=== PATIENT | female | born 1930 | race Caucasian/White ===

== ENCOUNTER 2019-05-13 12:25 | Inpatient (IN) | payer MEDICARE, SELFPAY ==
[~2019-05-13 12:25] MED LIST: Glycopyrrolate 0.2 MG/ML 5 ML SYRINGE ONE; ISOVUE-370 76%-LOCM 1 ML ONE; Lidocaine 1% PF 5 ML VIAL ONE; PHENYLEPHRINE-NS 100 MCG/ML 10 ML SYRINGE ONE; PROPOFOL 200 MG/20 ML VIAL ONE; Rocuronium Bromide 10 MG/ML (10ML VIAL) ONE; Succinylcholine Chloride 20 MG/ML 10 ml SYRINGE FS ONE; ePHEDrine 50 MG/ML VIAL ONE
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
[2019-05-13] MEDS ORDERED: Adacel (T-DAP) 0.5 ML SYRINGE ONE (12:47)
[2019-05-13] MEDS ORDERED: CEFAZOLIN 1 GM VIAL ONE ×2 (12:49)
[2019-05-13 12:51] LABS: Hemoglobin 12.3 g/dL (12.0-16.0); Mean Corpuscular HGB CONC 31.3 g/dL (32.0-36.0); Mean Corpuscular Hemoglobin 29.5 pg (27.0-31.0); Mean Corpuscular Volume 94.5 fL (78.0-98.0); Mean Platelet Volume 7.6 fL (7.4-10.4); Platelet Count 208 thou/uL (130-400); RBC Distribution Width 13.6 % (11.5-14.5); Red Blood Cell (RBC) Count 4.18 mill/uL (4.20-5.40)
[2019-05-13 12:58] LABS: INR-International Normal Ratio 1.2; PTT 29.4 SEC (22.9-36.1); Prothrombin Time 15.5 SEC (12.0-14.7)
[2019-05-13 13:02] LABS: Band 14 % (5-11); Eosinophils 3 % (0-10); Lymphocytes 12 % (21-51); MDiff Complete? YES; Monocytes 8 % (0-10); Neutrophil 61 % (42-75); Platelet Morphology Comment Appears Adequate; RBC Morphology Normal; Reactive Lymphocytes 2 % (0-10); White Blood Cell (WBC) Count 22.3 thou/uL (4.8-10.8)
[2019-05-13 13:06] LABS: ALT (SGPT) 72 U/L (8-55); AST (SGOT) 109 U/L (5-34); Alkaline Phosphatase 83 U/L (40-150); Anion Gap 12 mmol/L (10-20); BUN (Urea Nitrogen) 22 mg/dL (9.8-20.1); Bilirubin, Total 0.5 mg/dL (0.2-1.2); Calc. Creatinine Clearance 0 mL/min (70-130); Calcium 8.5 mg/dL (7.8-10.44); Carbon Dioxide 25 mmol/L (23-31); Chloride 107 mmol/L (98-107); Estimated GFR-MDRD 72; Glucose 135 mg/dL (83-110); Lipase 146 U/L (8-78); Potassium 4.4 mmol/L (3.5-5.1); Sodium 140 mmol/L (136-145)
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
[2019-05-13 13:38] LABS: Bilirubin Negative (Negative); Blood, Urine 3+ (Negative); Clarity Turbid (Clear); Glucose, Urine (Dipstick) Normal (Negative); Leukocyte Negative Leu/uL (Negative); Nitrite Negative (Negative); Protein, Urine (Dipstick) 100 mg/dL (Neg-Trace); RBC/HPF Greater than 50 HPF (0-3); Squamous Epithelial 0-3 HPF (0-3); Urobilinogen Normal mg/dL (Less than 2)
[2019-05-13 13:43] LABS: Bacteria/HPF None Seen HPF (None Seen)
[2019-05-13 13:44] LABS: Mucous/LPF 1+ LPF (<2+)
[2019-05-13] MEDS ORDERED: Promethazine HCl 25 MG/ML VIAL ONE (14:19)
[2019-05-13] MEDS ORDERED: Calcium Chloride 1 GM/10 ML Abboject SYRINGE ONE (14:36)
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
[2019-05-13] MEDS ORDERED: Heparin 1,000 UNITS/ML VIAL ONE (15:00)
[2019-05-13] MEDS ORDERED: Acetaminophen 1,000 MG in Premix Bag 1 BAG IVPB SCH (15:00)
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
[2019-05-13 15:07] LABS: Actual Bicarbonate (HCO3a) 18.3 mEq/L (22-28); Analyzer IN Cardio ER; Base Excess (BEa) -6.2 mEq/L (-2.0 to +3.0); CO2 Tension 33.4 mmHg (35.0-45.0); Carboxyhemoglobin (COHb) 0.2 gm% (0.0-3.0); Potassium - ABG Lab 4.05 mmol/L (3.70-5.30); pH, Arterial 7.36 (7.35-7.45)
[2019-05-13 15:09] LABS: O2 Tension (PaO2) 57.5 mmHg (> 60.0)
[2019-05-13] MEDS ORDERED: Promethazine HCl 25 MG/ML VIAL IM PRN (15:12)
[2019-05-13] MEDS ORDERED: Dextrose 5% in Water 1,000 ML IV PRN (15:12)
[2019-05-13] MEDS ORDERED: Morphine 4 MG/ML VIAL SLOW IVP PRN (15:12)
[2019-05-13] MEDS ORDERED: Dextrose 50% Abboject 50 ML SYRINGE SLOW IVP PRN (15:12)
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
[2019-05-13] MEDS ORDERED: Sodium Chloride 0.9% 1,000 ML IV SCH (15:15)
[2019-05-13 15:37] LABS: Troponin I 0.255 ng/mL (< 0.028)
[2019-05-13 15:41] LABS: Magnesium 1.3 mg/dL (1.6-2.6); Phosphorus 4.2 mg/dL (2.3-4.7)
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
[2019-05-13] MEDS: Lactated Ringer's 1,000 ML IV SCH ×2 (16:41→21:35)
[2019-05-13] MEDS ORDERED: Neomycin-Polymyxin 1 ML AMP ONE (17:25)
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
[2019-05-13] MEDS ORDERED: Norepinephrine 4 MG/4 ML VIAL ONE (18:08)
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
[2019-05-13] MEDS ORDERED: Magnesium 2 GM/50 ML 2 GM in Premix Bag 1 BAG IVPB SCH (18:45)
[2019-05-13 18:58] LABS: Hemoglobin 9.2 g/dL (12.0-16.0)
[2019-05-13] MEDS ORDERED: Fentanyl 100 MCG/2 ML VIAL ONE (20:20)
--- NOTE | 2019-05-13 20:32 | RAD ---
RIGHT WRIST TWO VIEWS: 05/13/19 Portable fluoroscopic spot images of the right wrist demonstrate placement of metal plate and screws stabilizing a distal radial fracture. IMPRESSION: Image documentation for ORIF with metal plate and screws stabilizing the distal radius with marked im provement in position and alignment. POS: [facility]
[2019-05-13] MEDS ORDERED: Famotidine/PF 20 mg/2ml Vial SLOW IVP SCH (21:00)
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
[2019-05-13] MEDS: Acetaminophen 1,000 MG in Premix Bag 1 BAG IVPB SCH (21:36)
[2019-05-13] MEDS ORDERED: CEFAZOLIN 2 GM in Sodium Chloride 0.9% 100 ML IVPB SCH (22:00)
[2019-05-13 22:30] LABS: Hemoglobin 11.5 g/dL (12.0-16.0)
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
[2019-05-13 22:51] LABS: Anion Gap 18 mmol/L (10-20); BUN (Urea Nitrogen) 22 mg/dL (9.8-20.1); CK (CPK) 3933 U/L (29-168); Calc. Creatinine Clearance 40 mL/min (70-130); Calcium 8.7 mg/dL (7.8-10.44); Carbon Dioxide 20 mmol/L (23-31); Chloride 108 mmol/L (98-107); Estimated GFR-MDRD 60; Glucose 190 mg/dL (83-110); Potassium 4.5 mmol/L (3.5-5.1); Sodium 141 mmol/L (136-145)
[2019-05-13 22:56] LABS: Troponin I 0.202 ng/mL (< 0.028)
[2019-05-13] MEDS ORDERED: Sodium Bicarbonate 150 MEQ in Dextrose 5% in Water 1,000 ML IV SCH (23:00)
[2019-05-13] MEDS: Ondansetron PF 4 MG/2 ML Vial IVP PRN (23:36)
[2019-05-14] MEDS: Insulin Regular 300 UNITS/3 ML VIAL SC PRN ×2 (00:47→06:45)
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
[2019-05-14] MEDS: Acetaminophen 1,000 MG in Premix Bag 1 BAG IVPB SCH ×3 (04:09→15:22)
[2019-05-14 04:48] LABS: #Lymphocytes 1.5 thou/uL (1.20-3.40); #Monocytes 1.3 thou/uL (0.11-0.59); #Neutrophils 10.4 thou/uL (1.40-6.50); %Basophils 0.2 % (0.0-1.0); %Eosinophils 0.2 % (0.0-10.0); %Monocytes 9.5 % (0.0-10.0); %Neutrophils 79.1 % (42.0-75.0); Hemoglobin 10.6 g/dL (12.0-16.0); Mean Corpuscular HGB CONC 34.7 g/dL (32.0-36.0); Mean Corpuscular Hemoglobin 31.9 pg (27.0-31.0); Mean Corpuscular Volume 91.8 fL (78.0-98.0); Mean Platelet Volume 8.3 fL (7.4-10.4); Platelet Count 175 thou/uL (130-400); RBC Distribution Width 13.6 % (11.5-14.5); Red Blood Cell (RBC) Count 3.32 mill/uL (4.20-5.40); White Blood Cell (WBC) Count 13.2 thou/uL (4.8-10.8)
[2019-05-14 05:07] LABS: ALT (SGPT) 49 U/L (8-55); AST (SGOT) 92 U/L (5-34); Alkaline Phosphatase 55 U/L (40-150); Anion Gap 17 mmol/L (10-20); BUN (Urea Nitrogen) 24 mg/dL (9.8-20.1); Bilirubin, Total 0.8 mg/dL (0.2-1.2); CK (CPK) 3759 U/L (29-168); Calc. Creatinine Clearance 36 mL/min (70-130); Calcium 8.9 mg/dL (7.8-10.44); Carbon Dioxide 23 mmol/L (23-31); Chloride 105 mmol/L (98-107); Estimated GFR-MDRD 54; Globulin 1.9 g/dL (2.4-3.5); Glucose 200 mg/dL (83-110); Potassium 4.1 mmol/L (3.5-5.1); Protein, Total 4.9 g/dL (6.0-8.3); Sodium 141 mmol/L (136-145)
[2019-05-14] MEDS: CEFAZOLIN 2 GM, Admixture Fee 1 EACH in Sodium Chloride 0.9% 100 ML IVPB SCH ×3 (05:57→21:14)
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
[2019-05-14] MEDS: Morphine 4 MG/ML VIAL SLOW IVP PRN ×2 (08:59→19:26)
[2019-05-14] MEDS: Lactated Ringer's 1,000 ML IV SCH ×2 (09:08→18:20)
[2019-05-14 09:56] LABS: Lactic Acid 5.5 mmol/L (0.5-2.2)
[2019-05-14] MEDS ORDERED: Amiodarone 150 MG, Admixture Fee 1 EACH in Dextrose 5% in Water 100 ML IVPB SCH (12:00)
[2019-05-14] MEDS: Amiodarone 450 MG, Admixture Fee 1 EACH in Dextrose 5% in Water 250 ML IVPB SCH ×2 (12:10→21:13)
[2019-05-14 12:30] LABS: Anion Gap 12 mmol/L (10-20); BUN (Urea Nitrogen) 28 mg/dL (9.8-20.1); Calc. Creatinine Clearance 36 mL/min (70-130); Calcium 8.5 mg/dL (7.8-10.44); Carbon Dioxide 28 mmol/L (23-31); Chloride 103 mmol/L (98-107); Estimated GFR-MDRD 52; Glucose 105 mg/dL (83-110); Magnesium 2.2 mg/dL (1.6-2.6); Phosphorus 3.8 mg/dL (2.3-4.7); Potassium 3.9 mmol/L (3.5-5.1); Sodium 139 mmol/L (136-145)
--- NOTE | 2019-05-14 13:35 | RAD ---
PORTABLE CHEST: Date: 05/14/19 HISTORY: Atrial fibrillation. COMPARISON: 05/13/19. FINDINGS: Heart mildly prominent, but stable. Aortic calcification again noted. No infiltrate or significant va scular congestion seen. IMPRESSION: Mild cardiomegaly is stable. No acute infiltrate or edema apparent. POS: [facility]
[2019-05-14] MEDS ORDERED: Potassium Chloride 20 MEQ in Premix Bag 1 BAG IVPB SCH (13:45)
[2019-05-14] MEDS ORDERED: Digoxin 0.5 MG/2 ML AMP SLOW IVP SCH (13:45)
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
[2019-05-14] MEDS ORDERED: Prevnar 13-Val Conj/PF 0.5 ML SYRINGE IM ONE (16:15)
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
[2019-05-14 19:02] LABS: Troponin I 0.092 ng/mL (< 0.028)
[2019-05-14] MEDS ORDERED: TAFLUPROST R EYE SCH (21:00)
[2019-05-14] MEDS: Famotidine/PF 20 mg/2ml Vial SLOW IVP SCH (21:00)
[2019-05-14] MEDS: Polyethylene Glycol 3350 17 GM Packet PO SCH (21:00)
[2019-05-14] MEDS ORDERED: Enoxaparin Sodium 40 MG/0.4 ML SYRINGE SC SCH ×2 (21:00)
[2019-05-14] MEDS: Senokot S 8.6-50 MG TAB PO SCH (21:00)
[2019-05-14] MEDS: Polyvinyl Alcohol 1.4%/Povidone 0.6% Opth Drops EA EYE PRN (21:01)
[2019-05-14] MEDS ORDERED: Enoxaparin Sodium 30 MG/0.3 ML SYRINGE SC SCH (21:15)
[2019-05-14] MEDS: Ondansetron PF 4 MG/2 ML Vial IVP PRN (21:29)
[2019-05-14] MEDS ORDERED: Furosemide 40 MG/4 ML VIAL SLOW IVP SCH (23:45)
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
[2019-05-15] MEDS: Ondansetron PF 4 MG/2 ML Vial IVP PRN (03:25)
[2019-05-15] MEDS: CEFAZOLIN 2 GM, Admixture Fee 1 EACH in Sodium Chloride 0.9% 100 ML IVPB SCH ×2 (05:20→13:27)
[2019-05-15] MEDS: Lactated Ringer's 1,000 ML IV SCH ×2 (05:20→16:22)
[2019-05-15 05:24] LABS: Anion Gap 12 mmol/L (10-20); BUN (Urea Nitrogen) 28 mg/dL (9.8-20.1); Calc. Creatinine Clearance 42 mL/min (70-130); Calcium 8.6 mg/dL (7.8-10.44); Carbon Dioxide 30 mmol/L (23-31); Chloride 97 mmol/L (98-107); Estimated GFR-MDRD 63; Glucose 141 mg/dL (83-110); Magnesium 1.8 mg/dL (1.6-2.6); Phosphorus 3.3 mg/dL (2.3-4.7); Potassium 3.9 mmol/L (3.5-5.1); Sodium 135 mmol/L (136-145)
[2019-05-15 05:32] LABS: Band 22 % (5-11); Hemoglobin 8.5 g/dL (12.0-16.0); Lymphocytes 13 % (21-51); MDiff Complete? YES; Mean Corpuscular HGB CONC 35.5 g/dL (32.0-36.0); Mean Corpuscular Volume 92.9 fL (78.0-98.0); Mean Platelet Volume 7.9 fL (7.4-10.4); Metamyelocyte 2 % (0-0); Monocytes 7 % (0-10); Neutrophil 56 % (42-75); Platelet Count 145 thou/uL (130-400); Platelet Morphology Comment Appears Adequate; RBC Distribution Width 13.4 % (11.5-14.5); RBC Morphology Normal; Red Blood Cell (RBC) Count 2.57 mill/uL (4.20-5.40); White Blood Cell (WBC) Count 12.2 thou/uL (4.8-10.8)
[2019-05-15] MEDS ORDERED: Cetirizine HCl 10 MG TAB PO SCH (09:00)
[2019-05-15] MEDS ORDERED: PROPOFOL 20 ML ONE (09:17)
[2019-05-15] MEDS ORDERED: Lidocaine 1% (PF) 30 ML VIAL ONE (09:18)
[2019-05-15] MEDS: Lisinopril/Hydrochlorothiazide 20 mg/12.5 mg Tablet PO SCH (10:02)
[2019-05-15] MEDS: Atorvastatin Calcium 20 MG TAB PO SCH (10:02)
[2019-05-15] MEDS: Loratadine 10 MG TAB PO SCH (10:03)
[2019-05-15] MEDS: Senokot S 8.6-50 MG TAB PO SCH ×2 (10:03→23:00)
[2019-05-15] MEDS: Morphine 4 MG/ML VIAL SLOW IVP PRN ×2 (10:27→16:17)
[2019-05-15] MEDS: Amiodarone 450 MG, Admixture Fee 1 EACH in Dextrose 5% in Water 250 ML IVPB SCH (11:41)
[2019-05-15] MEDS ORDERED: PHENYLEPHRINE-NS 100 MCG/ML 10 ML SYRINGE ONE (12:45)
[2019-05-15] MEDS ORDERED: Ondansetron PF 4 MG/2 ML Vial ONE (12:45)
[2019-05-15] MEDS ORDERED: PROPOFOL 200 MG/20 ML VIAL ONE (12:45)
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
--- NOTE | 2019-05-15 15:46 | OP ---
DATE OF PROCEDURE: 05/15/19 SURGEON: Narcisa Benavides M.D. PROCEDURE: Cardioversion INDICATION FOR PROCEDURE: This is an 88-year-old patient who developed atrial fibrillation/flutter yesterday afternoon. Given I V Amiodarone and needs to go to the operating room for further procedures. Unable to give this lady a dequate anticoagulation. It was felt in the best interest of the patient to proceed with early cardio version of her atrial flutter back to sinus rhythm. The patient was given short acting propofol by the anesthesiologist and using three attempts, one at 50 joules, 100 joules, and 150 joules, the patient did convert from the atrial flutter only momentari ly to sinus rhythm and then again each time converted back to atrial flutter. The rate is under good control and we will continue her medical management at this time. Would advise to proceed with her s urgical procedure as soon as possible and then we will attempt to again cardioversion after the proce dure.
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
[2019-05-15] MEDS ORDERED: Ketamine 50 MG/ML (10ML VIAL) ONE (18:08)
[2019-05-15] MEDS ORDERED: Propofol 1,000 MG/100 ML VIAL IV ONE (18:58)
[2019-05-15] MEDS ORDERED: Phenylephrine HCL 10 MG/ML VIAL ONE (19:58)
--- NOTE | 2019-05-15 21:34 | RAD ---
THREE FLUOROSCOPIC SPOT IMAGES OF THE LEFT DISTAL HUMERUS: 05/15/19 INDICATION: ORIF of left humerus. COMPARISON: Prior left foreign radiographs dated 05/13/19. FINDINGS: Since the comparison examination there has been interval open reduction and internal fixation of the distal humeral fracture. Fracture alignment is near anatomic. There has been placement of a low profi le screw and plate construct fixating the medial and lateral margin of the distal humerus. The instru mentation projects in the expected position without gross evidence of complication. Radiocapitellar alignment is normal appearing. The total fluoroscopic time was 9.4 seconds. Total exposure was 0.30 m Gy. IMPRESSION: Interval ORIF of left distal humerus fracture. POS: BH
[2019-05-15] MEDS: Famotidine/PF 20 mg/2ml Vial SLOW IVP SCH (22:59)
[2019-05-15] MEDS: Polyethylene Glycol 3350 17 GM Packet PO SCH (23:00)
[2019-05-16] MEDS: CEFAZOLIN 2 GM, Admixture Fee 1 EACH in Sodium Chloride 0.9% 100 ML IVPB SCH ×2 (00:38→05:38)
[2019-05-16] MEDS: Morphine 4 MG/ML VIAL SLOW IVP PRN ×2 (00:48→03:50)
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
[2019-05-16] MEDS: Lactated Ringer's 1,000 ML IV SCH (00:56)
[2019-05-16] MEDS: Amiodarone 450 MG, Admixture Fee 1 EACH in Dextrose 5% in Water 250 ML IVPB SCH ×2 (03:51→20:47)
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
[2019-05-16 04:31] LABS: #Lymphocytes 1.3 thou/uL (1.20-3.40); #Monocytes 0.8 thou/uL (0.11-0.59); #Neutrophils 5.8 thou/uL (1.40-6.50); %Basophils 0.3 % (0.0-1.0); %Eosinophils 0.5 % (0.0-10.0); %Lymphocytes 16.3 % (21.0-51.0); Hemoglobin 9.8 g/dL (12.0-16.0); Mean Corpuscular HGB CONC 34.4 g/dL (32.0-36.0); Mean Corpuscular Hemoglobin 31.7 pg (27.0-31.0); Mean Corpuscular Volume 92.2 fL (78.0-98.0); Platelet Count 111 thou/uL (130-400); RBC Distribution Width 13.8 % (11.5-14.5); Red Blood Cell (RBC) Count 3.09 mill/uL (4.20-5.40)
[2019-05-16 04:47] LABS: Anion Gap 11 mmol/L (10-20); BUN (Urea Nitrogen) 24 mg/dL (9.8-20.1); Calc. Creatinine Clearance 52 mL/min (70-130); Calcium 8.3 mg/dL (7.8-10.44); Carbon Dioxide 29 mmol/L (23-31); Chloride 101 mmol/L (98-107); Estimated GFR-MDRD 82; Glucose 115 mg/dL (83-110); Magnesium 1.9 mg/dL (1.6-2.6); Phosphorus 2.3 mg/dL (2.3-4.7); Sodium 137 mmol/L (136-145)
[2019-05-16] MEDS ORDERED: Furosemide 40 MG/4 ML VIAL SLOW IVP SCH (08:45)
[2019-05-16] MEDS: Lisinopril/Hydrochlorothiazide 20 mg/12.5 mg Tablet PO SCH (10:21)
[2019-05-16] MEDS: Atorvastatin Calcium 20 MG TAB PO SCH (10:23)
[2019-05-16] MEDS: Senokot S 8.6-50 MG TAB PO SCH ×2 (10:23→20:41)
[2019-05-16] MEDS: Loratadine 10 MG TAB PO SCH (10:27)
[2019-05-16] MEDS: Acetaminophen 500 MG TAB PO SCH ×3 (12:54→23:59)
[2019-05-16] MEDS: Insulin Regular 300 UNITS/3 ML VIAL SC PRN (17:47)
[2019-05-16] MEDS ORDERED: PHOS-NAK 1 PKT PACK PO SCH (18:15)
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
[2019-05-16] MEDS: Polyethylene Glycol 3350 17 GM Packet PO SCH (20:39)
[2019-05-16] MEDS: Enoxaparin Sodium 30 MG/0.3 ML SYRINGE SC SCH (20:41)
[2019-05-16] MEDS: Famotidine/PF 20 mg/2ml Vial SLOW IVP SCH (20:41)
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
[2019-05-17 04:48] LABS: Anion Gap 11 mmol/L (10-20); BUN (Urea Nitrogen) 26 mg/dL (9.8-20.1); Calc. Creatinine Clearance 47 mL/min (70-130); Calcium 8.2 mg/dL (7.8-10.44); Carbon Dioxide 31 mmol/L (23-31); Chloride 98 mmol/L (98-107); Estimated GFR-MDRD 73; Glucose 128 mg/dL (83-110); Magnesium 1.9 mg/dL (1.6-2.6); Phosphorus 2.1 mg/dL (2.3-4.7); Potassium 3.7 mmol/L (3.5-5.1); Sodium 136 mmol/L (136-145)
[2019-05-17] MEDS: Acetaminophen 500 MG TAB PO SCH (05:20)
[2019-05-17] MEDS ORDERED: Potassium Phosphate 15 MMOL in Sodium Chloride 0.9% 250 ML 250 ML IVPB SCH (08:00)
[2019-05-17] MEDS ORDERED: traMADol HCl 50 MG TAB PO PRN (08:18)
[2019-05-17] MEDS ORDERED: Ibuprofen 200 MG TAB PO PRN (08:19)
[2019-05-17] MEDS ORDERED: Furosemide 20 MG/2 ML VIAL SLOW IVP SCH (08:30)
[2019-05-17] MEDS: Senokot S 8.6-50 MG TAB PO SCH ×2 (09:00→20:53)
[2019-05-17] MEDS: Lisinopril/Hydrochlorothiazide 20 mg/12.5 mg Tablet PO SCH (09:00)
[2019-05-17] MEDS: Atorvastatin Calcium 20 MG TAB PO SCH (09:00)
[2019-05-17] MEDS ORDERED: Ibuprofen 200 MG TAB PO SCH (09:00)
[2019-05-17] MEDS: Amlodipine 5 MG TAB PO SCH ×2 (09:00→18:47)
[2019-05-17] MEDS: Loratadine 10 MG TAB PO SCH (09:00)
[2019-05-17] MEDS: traMADol HCl 50 MG TAB PO SCH ×3 (09:00→20:53)
--- NOTE | 2019-05-17 09:00 | EKG ---
Test Reason : Blood Pressure : / mmHG Vent. Rate : 110 BPM Atrial Rate : 110 BPM P-R Int : 000 ms QRS Dur : 066 ms QT Int : 298 ms P-R-T Axes : 000 021 064 degrees QTc Int : 403 ms Atrial fibrillation Possible Inferior infarct , age undetermined Abnormal ECG No previous ECGs available Confirmed by DR. Mark POTTS ([id number]) on 05/17/2019 9:00:03 AM Referred By: ISSA Confirmed By:DR. Mark POTTS
[2019-05-17] MEDS ORDERED: Fentanyl 100 MCG/2 ML VIAL ONE (09:04)
[2019-05-17] MEDS ORDERED: Fentanyl 100 MCG/2 ML VIAL SLOW IVP SCH (09:15)
[2019-05-17] MEDS ORDERED: Magnesium 2 GM/50 ML 2 GM in Premix Bag 1 BAG IVPB SCH (09:15)
[2019-05-17] MEDS ORDERED: Morphine 2 MG/ML SYRINGE SLOW IVP PRN (10:20)
[2019-05-17] MEDS: Ketorolac Tromethamine 30 MG/ML VIAL IVP SCH ×2 (10:35→18:10)
[2019-05-17] MEDS: Amiodarone 450 MG, Admixture Fee 1 EACH in Dextrose 5% in Water 250 ML IVPB SCH (12:25)
[2019-05-17] MEDS: Acetaminophen 1,000 MG in Premix Bag 1 BAG IVPB SCH ×2 (12:25→18:06)
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
[2019-05-17] MEDS ORDERED: PROPOFOL 20 ML ONE (16:11)
[2019-05-17] MEDS ORDERED: PROPOFOL 200 MG/20 ML VIAL ONE (17:03)
[2019-05-17] MEDS: Polyethylene Glycol 3350 17 GM Packet PO SCH (20:53)
[2019-05-17] MEDS: Enoxaparin Sodium 30 MG/0.3 ML SYRINGE SC SCH (20:53)
[2019-05-17] MEDS: Famotidine/PF 20 mg/2ml Vial SLOW IVP SCH (20:53)
[2019-05-17] MEDS: Polyvinyl Alcohol 1.4%/Povidone 0.6% Opth Drops EA EYE PRN (20:55)
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
[2019-05-18] MEDS: Acetaminophen 1,000 MG in Premix Bag 1 BAG IVPB SCH ×2 (01:01→05:36)
[2019-05-18] MEDS: Ketorolac Tromethamine 30 MG/ML VIAL IVP SCH ×3 (01:04→19:16)
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
[2019-05-18] MEDS: Amiodarone 450 MG, Admixture Fee 1 EACH in Dextrose 5% in Water 250 ML IVPB SCH ×2 (03:52→20:33)
[2019-05-18 05:14] LABS: Anion Gap 12 mmol/L (10-20); BUN (Urea Nitrogen) 30 mg/dL (9.8-20.1); Calc. Creatinine Clearance 53 mL/min (70-130); Calcium 8.4 mg/dL (7.8-10.44); Carbon Dioxide 30 mmol/L (23-31); Chloride 98 mmol/L (98-107); Estimated GFR-MDRD 71; Glucose 101 mg/dL (83-110); Magnesium 2.5 mg/dL (1.6-2.6); Phosphorus 3.6 mg/dL (2.3-4.7); Potassium 3.7 mmol/L (3.5-5.1); Sodium 136 mmol/L (136-145)
[2019-05-18] MEDS: hydrALAZINE 20 MG/ML VIAL SLOW IVP PRN (06:43)
[2019-05-18] MEDS ORDERED: Potassium Chloride 40 MEQ in Sodium Chloride 0.9% 250 ML 250 ML IVPB SCH (08:15)
[2019-05-18] MEDS: Senokot S 8.6-50 MG TAB PO SCH ×2 (08:31→20:44)
[2019-05-18] MEDS: Atorvastatin Calcium 20 MG TAB PO SCH (08:31)
[2019-05-18] MEDS: Amlodipine 5 MG TAB PO SCH (08:32)
[2019-05-18] MEDS: traMADol HCl 50 MG TAB PO SCH ×3 (08:32→20:44)
[2019-05-18] MEDS: Loratadine 10 MG TAB PO SCH (08:33)
[2019-05-18] MEDS: Lisinopril/Hydrochlorothiazide 20 mg/12.5 mg Tablet PO SCH (08:39)
[2019-05-18] MEDS: Ondansetron PF 4 MG/2 ML Vial IVP PRN ×2 (08:51→22:57)
--- NOTE | 2019-05-18 09:34 | RAD ---
XR Abdomen 1 View/KUB 1 view abdomen series CLINICAL INDICATION: Ileus FINDINGS: Added density at the inferior left chest may relate to pleural fluid. Limited evaluation for free air. There is gaseous distention of bowel throughout the abdomen and pelvis. Moderate retained fecal material is seen within the distal colon. Small rectal probe is partially daryn ged at the low midline pelvis. Metallic clips seen overlying the left hemipelvis. No acute osseous pathology. IMPRESSION: Diffuse gaseous distention of the bowel. This may be on the basis of adynamic ileus or me chanical obstruction. Recommend continued radiographic follow-up.
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
[2019-05-18] MEDS ORDERED: Acetaminophen 500 MG TAB PO SCH (12:00)
[2019-05-18] MEDS: Neostigmine 0.5 MG in Syringe 0 ML SC SCH ×2 (12:33→19:18)
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
[2019-05-18] MEDS ORDERED: CEFAZOLIN 2 GM in Premix Bag 1 BAG IVPB SCH (13:30)
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
[2019-05-18] MEDS ORDERED: Amiodarone 200 MG TAB PO SCH (15:00)
[2019-05-18] MEDS: Bacitracin Zinc Ointment 30 gm TUBE TOP SCH (20:42)
[2019-05-18] MEDS: Famotidine/PF 20 mg/2ml Vial SLOW IVP SCH (20:43)
[2019-05-18] MEDS: Bisacodyl 10 MG SUPP PR SCH (20:43)
[2019-05-18] MEDS: Enoxaparin Sodium 30 MG/0.3 ML SYRINGE SC SCH (20:43)
[2019-05-18] MEDS: Lisinopril 20 MG TAB PO SCH (20:43)
[2019-05-18] MEDS: Polyethylene Glycol 3350 17 GM Packet PO SCH (20:44)
[2019-05-19] MEDS: Neostigmine 0.5 MG in Syringe 0 ML SC SCH ×2 (00:02→05:57)
[2019-05-19] MEDS: Polyvinyl Alcohol 1.4%/Povidone 0.6% Opth Drops EA EYE PRN ×2 (00:04→10:54)
[2019-05-19] MEDS: Sodium Chloride 0.9% 1,000 ML IV SCH ×2 (00:06→13:43)
[2019-05-19] MEDS: Ketorolac Tromethamine 30 MG/ML VIAL IVP SCH ×3 (01:11→17:30)
[2019-05-19 04:54] LABS: Anion Gap 9 mmol/L (10-20); BUN (Urea Nitrogen) 30 mg/dL (9.8-20.1); Calc. Creatinine Clearance 60 mL/min (70-130); Calcium 8.2 mg/dL (7.8-10.44); Carbon Dioxide 31 mmol/L (23-31); Chloride 97 mmol/L (98-107); Estimated GFR-MDRD 82; Glucose 111 mg/dL (83-110); Magnesium 2.1 mg/dL (1.6-2.6); Phosphorus 2.4 mg/dL (2.3-4.7); Potassium 4.4 mmol/L (3.5-5.1); Sodium 133 mmol/L (136-145)
[2019-05-19 05:25] LABS: Band 1 % (5-11); Hemoglobin 9.1 g/dL (12.0-16.0); Hypochromia SLIGHT = 6-15 cells (100X) (0-5/hpf); Lymphocytes 15 % (21-51); MDiff Complete? YES; Mean Corpuscular HGB CONC 34.5 g/dL (32.0-36.0); Mean Corpuscular Hemoglobin 32.6 pg (27.0-31.0); Mean Corpuscular Volume 94.6 fL (78.0-98.0); Mean Platelet Volume 7.3 fL (7.4-10.4); Monocytes 5 % (0-10); Neutrophil 79 % (42-75); Platelet Count 244 thou/uL (130-400); Platelet Morphology Comment Appears Adequate; RBC Distribution Width 14.3 % (11.5-14.5); Red Blood Cell (RBC) Count 2.78 mill/uL (4.20-5.40); White Blood Cell (WBC) Count 14.5 thou/uL (4.8-10.8)
[2019-05-19] MEDS: hydrALAZINE 20 MG/ML VIAL SLOW IVP PRN ×2 (06:42→17:13)
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
[2019-05-19] MEDS ORDERED: Furosemide 20 MG/2 ML VIAL SLOW IVP SCH (07:15)
--- NOTE | 2019-05-19 08:50 | RAD ---
CHEST 1 VIEW: Date: 05/19/19 HISTORY: Preoperative evaluation. COMPARISON: 05/14/19. FINDINGS: Right PICC line in place. Borderline cardiomegaly. Developing minimal pleural and parenchymal changes in the left lower lobe and infrahilar parenchymal changes in the right base since the prior study, r aising concern for developing bibasilar pneumonitis and/or subsegmental atelectasis with a small left pleural effusion. Mild vascular congestion. IMPRESSION: Developing pleural and parenchymal opacity changes in the left lower lobe, as well as some right infr ahilar parenchymal changes, possibly representing bibasilar pneumonitis and/or atelectasis. Minimal c ardiomegaly. Mild bilateral vascular congestion. CODE T.
[2019-05-19] MEDS: Atorvastatin Calcium 20 MG TAB PO SCH (09:02)
[2019-05-19] MEDS: Bacitracin Zinc Ointment 30 gm TUBE TOP SCH ×2 (09:02→21:35)
[2019-05-19] MEDS: Amlodipine 5 MG TAB PO SCH ×2 (09:02→21:34)
[2019-05-19] MEDS: Lisinopril 20 MG TAB PO SCH ×2 (09:02→21:32)
[2019-05-19] MEDS: Hydrochlorothiazide 25 MG TAB PO SCH (09:03)
[2019-05-19] MEDS: Bisacodyl 10 MG SUPP PR SCH ×2 (09:03→21:35)
[2019-05-19] MEDS: Senokot S 8.6-50 MG TAB PO SCH ×2 (09:04→21:37)
[2019-05-19] MEDS: Loratadine 10 MG TAB PO SCH (09:04)
[2019-05-19] MEDS: traMADol HCl 50 MG TAB PO SCH ×3 (09:09→21:33)
[2019-05-19] MEDS: Amiodarone 450 MG, Admixture Fee 1 EACH in Dextrose 5% in Water 250 ML IVPB SCH (11:16)
[2019-05-19] MEDS ORDERED: Fentanyl 100 MCG/2 ML VIAL ONE (11:59)
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
--- NOTE | 2019-05-19 13:16 | EKG ---
Test Reason : Blood Pressure : / mmHG Vent. Rate : 087 BPM Atrial Rate : 087 BPM P-R Int : 218 ms QRS Dur : 090 ms QT Int : 452 ms P-R-T Axes : 063 082 -17 degrees QTc Int : 543 ms Sinus rhythm with 1st degree A-V block with Premature atrial complexes Low voltage QRS Cannot rule out Anterior infarct , age undetermined Abnormal ECG When compared with ECG of 15-MAY-2019 12:11, (Unconfirmed) Sinus rhythm has replaced Atrial flutter QT has lengthened Confirmed by RENEE HINDS (2) on 05/19/2019 1:15:25 PM Referred By: TAN Confirmed By:RENEE HINDS
[2019-05-19] MEDS: Morphine 4 MG/ML VIAL SLOW IVP PRN ×2 (15:34→22:16)
[2019-05-19] MEDS ORDERED: Promethazine HCl 25 MG/ML VIAL IM PRN (15:39)
[2019-05-19] MEDS ORDERED: Ondansetron HCl/PF 4 MG/2 ML Vial IVP PRN (15:39)
[2019-05-19] MEDS ORDERED: Promethazine HCl 25 MG/ML VIAL SLOW IVP PRN (15:39)
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
--- NOTE | 2019-05-19 16:41 | RAD ---
PORTABLE AP ABDOMINAL RADIOGRAPH: 05/19/19 HISTORY: Evaluate Dobhoff feeding tube placement. COMPARISON: 05/18/19. FINDINGS: There is partial visualization of the tip of a central venous catheter is seen overlying the distal SVC. Curvilinear density at the right lung base is probably related to bleb within the minor fissure and there is persistent elevation of the right hemidiaphragm. Dobhoff feeding tube is now noted in pl aced which is coiled overlying the left upper quadrant with tip overlying the expected body/fundus of the stomach. There is mild gaseous distention of loops of small bowel. No other interval change fro m supine view of the abdomen on 05/18/19. IMPRESSION: Dobhoff feeding tube noted in place coiled overlying the left upper quadrant with tip overlying the f undus/body of the stomach. POS: [place]
[2019-05-19] MEDS ORDERED: Rocuronium Bromide 10 MG/ML (10ML VIAL) ONE (17:07)
[2019-05-19] MEDS ORDERED: Ondansetron PF 4 MG/2 ML Vial ONE (17:07)
[2019-05-19] MEDS ORDERED: Lidocaine 1% PF 5 ML VIAL ONE (17:07)
[2019-05-19] MEDS ORDERED: PROPOFOL 200 MG/20 ML VIAL ONE (17:07)
[2019-05-19] MEDS ORDERED: ePHEDrine 50 MG/ML VIAL ONE (17:07)
[2019-05-19] MEDS: Ondansetron PF 4 MG/2 ML Vial IVP PRN (17:13)
--- NOTE | 2019-05-19 17:36 | RAD ---
KUB: 05/19/19 COMPARISON: 05/19/19 at 3:36 p.m. HISTORY: Dobhoff placement. FINDINGS: A single view of the abdomen again shows the Dobhoff tube curled in the stomach. There is a nonspecif ic, nonobstructive bowel gas pattern. IMPRESSION: Dobhoff tube located in the stomach. POS: CET
--- NOTE | 2019-05-19 17:37 | RAD ---
SINGLE VIEW ABDOMEN: HISTORY: Dobhoff tube placement. COMPARISON: Exam done on 05/19/2019 at 3:40 p.m. FINDINGS: A single view of the abdomen shows a Dobhoff tube curled in the left upper quadrant of the abdomen, l ikely within the stomach. There is a nonobstructed bowel gas pattern. IMPRESSION: Dobhoff tube remains in the stomach. POS: CET
--- NOTE | 2019-05-19 17:37 | RAD ---
KUB: 05/19/19 COMPARISON: 05/19/19 at 3:30 p.m. HISTORY: Dobhoff tube placement. FINDINGS: Single view of the abdomen shows a Dobhoff tube curled within the stomach. There is a nonobstructive bowel gas pattern. IMPRESSION: Dobhoff tube remains in the stomach. POS: CET
--- NOTE | 2019-05-19 18:01 | RAD ---
INTRAOPERATIVE IMAGING OF THE RIGHT TIBIA AND FIBULA: 05/19/2019 HISTORY: ORIF right ankle. FINDINGS: Multifocal fracture deformity of the fibular shaft noted with mild lateral displacement of the segmen hina fracture fragment. Comminuted distal tibial shaft fractures with a medial tibial screw and plate fixation. There is anatomic alignment at the tibial fracture site. IMPRESSION: Open reduction and internal fixation, as above. POS: [place]
[2019-05-19] MEDS: Famotidine/PF 20 mg/2ml Vial SLOW IVP SCH (21:34)
[2019-05-19] MEDS: Polyethylene Glycol 3350 17 GM Packet PO SCH (21:36)
[2019-05-19] MEDS: Enoxaparin Sodium 40 MG/0.4 ML SYRINGE SC SCH (22:08)
[2019-05-19] MEDS: CEFAZOLIN 2 GM, Admixture Fee 1 EACH in Sodium Chloride 0.9% 100 ML IVPB SCH (22:10)
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
[2019-05-20] MEDS: Ketorolac Tromethamine 30 MG/ML VIAL IVP SCH (01:20)
[2019-05-20] MEDS: Amiodarone 450 MG, Admixture Fee 1 EACH in Dextrose 5% in Water 250 ML IVPB SCH ×2 (01:22→19:18)
[2019-05-20] MEDS: CEFAZOLIN 2 GM, Admixture Fee 1 EACH in Sodium Chloride 0.9% 100 ML IVPB SCH ×3 (05:14→21:38)
[2019-05-20] MEDS: Ondansetron PF 4 MG/2 ML Vial IVP PRN (06:10)
[2019-05-20 06:28] LABS: #Basophils 0.1 thou/uL (0.0-0.2); #Eosinphils 0.3 thou/uL (0.0-0.7); #Lymphocytes 1.8 thou/uL (1.20-3.40); #Monocytes 1.9 thou/uL (0.11-0.59); #Neutrophils 10.1 thou/uL (1.40-6.50); %Basophils 0.4 % (0.0-1.0); %Eosinophils 2.3 % (0.0-10.0); %Lymphocytes 12.9 % (21.0-51.0); %Monocytes 13.2 % (0.0-10.0); %Neutrophils 71.2 % (42.0-75.0); Mean Corpuscular HGB CONC 33.2 g/dL (32.0-36.0); Mean Corpuscular Volume 93.4 fL (78.0-98.0); Mean Platelet Volume 7.7 fL (7.4-10.4); Platelet Count 156 thou/uL (130-400); Red Blood Cell (RBC) Count 2.89 mill/uL (4.20-5.40); White Blood Cell (WBC) Count 14.1 thou/uL (4.8-10.8)
[2019-05-20 07:39] LABS: Anion Gap 8 mmol/L (10-20); BUN (Urea Nitrogen) 35 mg/dL (9.8-20.1); Calc. Creatinine Clearance 50 mL/min (70-130); Calcium 8.3 mg/dL (7.8-10.44); Carbon Dioxide 32 mmol/L (23-31); Chloride 99 mmol/L (98-107); Estimated GFR-MDRD 67; Glucose 156 mg/dL (83-110); Phosphorus 2.4 mg/dL (2.3-4.7); Potassium 3.9 mmol/L (3.5-5.1); Sodium 135 mmol/L (136-145)
[2019-05-20] MEDS: Amlodipine 5 MG TAB PO SCH ×2 (08:13→21:33)
[2019-05-20] MEDS: Atorvastatin Calcium 20 MG TAB PO SCH (08:15)
[2019-05-20] MEDS: Lisinopril 20 MG TAB PO SCH ×2 (08:15→21:35)
[2019-05-20] MEDS: Hydrochlorothiazide 25 MG TAB PO SCH (08:15)
[2019-05-20] MEDS: Loratadine 10 MG TAB PO SCH (08:15)
[2019-05-20] MEDS: Senokot S 8.6-50 MG TAB PO SCH ×2 (08:16→21:38)
[2019-05-20] MEDS: Bisacodyl 10 MG SUPP PR SCH (08:17)
[2019-05-20] MEDS: Bacitracin Zinc Ointment 30 gm TUBE TOP SCH ×2 (08:17→21:37)
[2019-05-20] MEDS ORDERED: Ibuprofen 800 MG TAB PO PRN (08:21)
[2019-05-20] MEDS ORDERED: Ibuprofen 600 MG TAB PO PRN (08:36)
[2019-05-20] MEDS: Acetaminophen 500 MG TAB PO SCH ×3 (08:44→21:36)
[2019-05-20] MEDS: Ascorbic Acid 500 mg Chewable Tablet PO SCH ×2 (08:44→21:35)
[2019-05-20] MEDS: traMADol HCl 50 MG TAB PO SCH ×3 (08:44→21:31)
[2019-05-20] MEDS: hydrALAZINE 20 MG/ML VIAL SLOW IVP PRN ×2 (09:28→16:51)
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
[2019-05-20] MEDS: Metoclopramide HCl 10 MG/2 ML VIAL IVP SCH ×2 (13:35→21:36)
[2019-05-20] MEDS: Ferrous Sulfate 325 MG TAB PO SCH (16:32)
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
[2019-05-20] MEDS: Famotidine/PF 20 mg/2ml Vial SLOW IVP SCH (21:36)
[2019-05-20] MEDS: Enoxaparin Sodium 40 MG/0.4 ML SYRINGE SC SCH (21:37)
[2019-05-20] MEDS: Polyethylene Glycol 3350 17 GM Packet PO SCH (21:37)
[2019-05-20] MEDS ORDERED: Chloraseptic Spray 180 ml Bottle PO PRN (22:00)
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
[2019-05-21] MEDS: Acetaminophen 500 MG TAB PO SCH ×4 (02:30→20:08)
[2019-05-21] MEDS: traMADol HCl 50 MG TAB PO SCH ×4 (03:00→20:08)
[2019-05-21] MEDS: Metoclopramide HCl 10 MG/2 ML VIAL IVP SCH ×3 (06:46→20:07)
[2019-05-21] MEDS: hydrALAZINE 20 MG/ML VIAL SLOW IVP PRN ×2 (06:55→17:04)
[2019-05-21] MEDS: Ferrous Sulfate 325 MG TAB PO SCH ×2 (08:01→16:36)
[2019-05-21] MEDS: Amlodipine 5 MG TAB PO SCH ×2 (08:25→20:08)
[2019-05-21] MEDS: Ascorbic Acid 500 mg Chewable Tablet PO SCH ×2 (08:25→20:08)
[2019-05-21] MEDS: Lisinopril 20 MG TAB PO SCH (08:26)
[2019-05-21] MEDS: Atorvastatin Calcium 20 MG TAB PO SCH (08:26)
[2019-05-21] MEDS: Hydrochlorothiazide 25 MG TAB PO SCH (08:26)
[2019-05-21] MEDS: Loratadine 10 MG TAB PO SCH (08:26)
[2019-05-21] MEDS: Bacitracin Zinc Ointment 30 gm TUBE TOP SCH ×2 (08:27→20:07)
[2019-05-21] MEDS: Senokot S 8.6-50 MG TAB PO SCH ×2 (08:27→20:09)
[2019-05-21 08:47] LABS: Hemoglobin 9.1 g/dL (12.0-16.0); Mean Corpuscular HGB CONC 32.7 g/dL (32.0-36.0); Mean Corpuscular Hemoglobin 31.1 pg (27.0-31.0); Mean Corpuscular Volume 95.2 fL (78.0-98.0); Mean Platelet Volume 8.1 fL (7.4-10.4); Platelet Count 247 thou/uL (130-400); RBC Distribution Width 15.1 % (11.5-14.5); Red Blood Cell (RBC) Count 2.93 mill/uL (4.20-5.40); White Blood Cell (WBC) Count 14.1 thou/uL (4.8-10.8)
[2019-05-21 09:05] LABS: Anion Gap 12 mmol/L (10-20); BUN (Urea Nitrogen) 37 mg/dL (9.8-20.1); Calc. Creatinine Clearance 55 mL/min (70-130); Calcium 8.4 mg/dL (7.8-10.44); Carbon Dioxide 27 mmol/L (23-31); Chloride 99 mmol/L (98-107); Estimated GFR-MDRD 74; Glucose 139 mg/dL (83-110); Phosphorus 2.7 mg/dL (2.3-4.7); Sodium 134 mmol/L (136-145)
[2019-05-21 09:09] LABS: #Eosinphils 0.2 thou/uL (0.0-0.7); #Lymphocytes 1.7 thou/uL (1.20-3.40); #Monocytes 1.5 thou/uL (0.11-0.59); #Neutrophils 10.7 thou/uL (1.40-6.50); %Eosinophils 1.5 % (0.0-10.0); %Monocytes 10.3 % (0.0-10.0); %Neutrophils 76.1 % (42.0-75.0); Band 17 % (5-11); Eosinophils 3 % (0-10); Helmet Cells SLIGHT = 2-5 cells (100X) (0-1/hpf); Lymphocytes 10 % (21-51); MDiff Complete? YES; Monocytes 10 % (0-10); Neutrophil 60 % (42-75); Ovalocytes SLIGHT = 2-5 cells (100X) (0-1/hpf); Platelet Morphology Comment Appears Adequate; Polychromasia SLIGHT = 2-3 cells (100X) (0-2/hpf)
[2019-05-21] MEDS: Morphine 4 MG/ML VIAL SLOW IVP PRN (10:02)
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
[2019-05-21] MEDS: Amiodarone 450 MG, Admixture Fee 1 EACH in Dextrose 5% in Water 250 ML IVPB SCH (13:09)
[2019-05-21] MEDS: Polyvinyl Alcohol 1.4%/Povidone 0.6% Opth Drops EA EYE PRN (14:07)
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
[2019-05-21] MEDS: Enoxaparin Sodium 40 MG/0.4 ML SYRINGE SC SCH (20:07)
[2019-05-21] MEDS: Famotidine/PF 20 mg/2ml Vial SLOW IVP SCH (20:08)
[2019-05-21] MEDS: Polyethylene Glycol 3350 17 GM Packet PO SCH (20:09)
[2019-05-22] MEDS: traMADol HCl 50 MG TAB PO SCH ×4 (03:16→20:24)
[2019-05-22] MEDS: Acetaminophen 500 MG TAB PO SCH ×4 (03:17→20:24)
[2019-05-22] MEDS: Amiodarone 450 MG, Admixture Fee 1 EACH in Dextrose 5% in Water 250 ML IVPB SCH (03:56)
[2019-05-22] MEDS: Metoclopramide HCl 10 MG/2 ML VIAL IVP SCH ×2 (05:29→15:24)
[2019-05-22 06:00] LABS: #Eosinphils 0.2 thou/uL (0.0-0.7); #Lymphocytes 1.1 thou/uL (1.20-3.40); #Monocytes 1.3 thou/uL (0.11-0.59); #Neutrophils 12.3 thou/uL (1.40-6.50); %Basophils 0.1 % (0.0-1.0); %Eosinophils 1.2 % (0.0-10.0); %Lymphocytes 7.7 % (21.0-51.0); %Monocytes 8.9 % (0.0-10.0); %Neutrophils 82.2 % (42.0-75.0); Hemoglobin 8.8 g/dL (12.0-16.0); Mean Corpuscular HGB CONC 33.8 g/dL (32.0-36.0); Mean Corpuscular Hemoglobin 32.3 pg (27.0-31.0); Mean Corpuscular Volume 95.4 fL (78.0-98.0); Mean Platelet Volume 7.1 fL (7.4-10.4); Platelet Count 334 thou/uL (130-400); RBC Distribution Width 14.9 % (11.5-14.5); Red Blood Cell (RBC) Count 2.71 mill/uL (4.20-5.40); White Blood Cell (WBC) Count 14.9 thou/uL (4.8-10.8)
[2019-05-22 06:39] LABS: Anion Gap 11 mmol/L (10-20); BUN (Urea Nitrogen) 42 mg/dL (9.8-20.1); Calc. Creatinine Clearance 57 mL/min (70-130); Calcium 8.3 mg/dL (7.8-10.44); Carbon Dioxide 28 mmol/L (23-31); Chloride 101 mmol/L (98-107); Estimated GFR-MDRD 77; Glucose 149 mg/dL (83-110); Phosphorus 2.7 mg/dL (2.3-4.7); Potassium 4.1 mmol/L (3.5-5.1); Sodium 136 mmol/L (136-145)
[2019-05-22] MEDS: Atorvastatin Calcium 20 MG TAB PO SCH (09:12)
[2019-05-22] MEDS: Amlodipine 5 MG TAB PO SCH ×2 (09:13→20:25)
[2019-05-22] MEDS: Ascorbic Acid 500 mg Chewable Tablet PO SCH ×2 (09:13→20:25)
[2019-05-22] MEDS: Hydrochlorothiazide 25 MG TAB PO SCH (09:13)
[2019-05-22] MEDS: Ferrous Sulfate 325 MG TAB PO SCH ×2 (09:13→16:56)
[2019-05-22] MEDS: Bacitracin Zinc Ointment 30 gm TUBE TOP SCH ×2 (09:21→20:27)
[2019-05-22] MEDS: Losartan 25 MG TAB PO SCH (09:23)
[2019-05-22] MEDS: Senokot S 8.6-50 MG TAB PO SCH ×2 (09:23→20:26)
[2019-05-22] MEDS: Loratadine 10 MG TAB PO SCH (09:23)
[2019-05-22] MEDS: Polyvinyl Alcohol 1.4%/Povidone 0.6% Opth Drops EA EYE PRN ×2 (09:46→18:00)
[2019-05-22 10:02] LABS: Bacteria/HPF None Seen HPF (None Seen); Bilirubin Negative (Negative); Blood, Urine 1+ (Negative); Clarity Clear (Clear); Glucose, Urine (Dipstick) Normal (Negative); Leukocyte 500 Leu/uL (Negative); Nitrite 1+ (Negative); Protein, Urine (Dipstick) 30 mg/dL (Neg-Trace); Squamous Epithelial None Seen HPF (0-3); Urobilinogen Normal mg/dL (Less than 2); WBC/HPF Greater than 50 HPF (0-3)
[2019-05-22 10:03] LABS: Urine Culture Reflex Yes Yes
[2019-05-22] MEDS ORDERED: Sulfameth/Trimethoprim DS 800-160mg TAB PO SCH (10:45)
[2019-05-22] MEDS: Ondansetron PF 4 MG/2 ML Vial IVP PRN (12:08)
[2019-05-22] MEDS: hydrALAZINE 20 MG/ML VIAL SLOW IVP PRN ×2 (13:24→17:33)
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
--- NOTE | 2019-05-22 16:32 | ULT ---
Exam: Right upper extremity venous ultrasound with Doppler HISTORY: Patient has a forearm cast. Edema COMPARISON: none Technique: Grayscale, color flow, Doppler imaging and spectral waveform of the right upper extremity venous system FINDINGS: Limited evaluation due to mobility and forearm contrast Internal jugular vein is patent. Subclavian vein and axillary vein are patent. Suboptimal evaluation of the remainder the right upper extremity venous system, including the cephali c vein, basilic vein and brachial vein.. IMPRESSION: Suboptimal evaluation the right upper extremity venous system. There does appear to be so ft tissue edema.
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
[2019-05-22] MEDS: Metoclopramide 10 MG/10 ML UDCUP PO SCH ×2 (17:09→20:28)
[2019-05-22] MEDS ORDERED: Activase 2 MG VIAL CATH SCH (17:15)
[2019-05-22] MEDS ORDERED: Furosemide 40 MG/4 ML VIAL SLOW IVP SCH (17:30)
[2019-05-22] MEDS: Amiodarone 200 MG TAB PO SCH (20:24)
[2019-05-22] MEDS: Sulfameth/Trimethoprim DS 800-160mg TAB PO SCH (20:25)
[2019-05-22] MEDS: Famotidine 20 MG TAB PO SCH (20:25)
[2019-05-22] MEDS: Enoxaparin Sodium 40 MG/0.4 ML SYRINGE SC SCH (20:26)
[2019-05-22] MEDS: Polyethylene Glycol 3350 17 GM Packet PO SCH (20:26)
[2019-05-22] MEDS ORDERED: Amlodipine 5 MG TAB PO SCH (21:00)
[2019-05-22] MEDS ORDERED: LIFITEGRAST EA EYE SCH (21:00)
[2019-05-22] MEDS: Lifitegrast [Xiidra] 1 DROP EA EYE SCH (22:59)
[2019-05-23] MEDS: Acetaminophen 500 MG TAB PO SCH ×4 (03:52→20:12)
[2019-05-23] MEDS: traMADol HCl 50 MG TAB PO SCH ×4 (03:53→20:13)
[2019-05-23 05:21] LABS: #Eosinphils 0.1 thou/uL (0.0-0.7); #Lymphocytes 1.4 thou/uL (1.20-3.40); #Monocytes 1.2 thou/uL (0.11-0.59); #Neutrophils 13.3 thou/uL (1.40-6.50); %Basophils 0.2 % (0.0-1.0); %Eosinophils 0.9 % (0.0-10.0); %Lymphocytes 8.6 % (21.0-51.0); %Monocytes 7.6 % (0.0-10.0); %Neutrophils 82.8 % (42.0-75.0); Hemoglobin 8.8 g/dL (12.0-16.0); Mean Corpuscular HGB CONC 33.5 g/dL (32.0-36.0); Mean Corpuscular Hemoglobin 32.6 pg (27.0-31.0); Mean Corpuscular Volume 97.4 fL (78.0-98.0); Mean Platelet Volume 6.8 fL (7.4-10.4); Platelet Count 344 thou/uL (130-400); RBC Distribution Width 15.7 % (11.5-14.5); Red Blood Cell (RBC) Count 2.69 mill/uL (4.20-5.40); White Blood Cell (WBC) Count 16.1 thou/uL (4.8-10.8)
[2019-05-23 05:50] LABS: Anion Gap 12 mmol/L (10-20); BUN (Urea Nitrogen) 34 mg/dL (9.8-20.1); Calc. Creatinine Clearance 61 mL/min (70-130); Calcium 8.4 mg/dL (7.8-10.44); Carbon Dioxide 28 mmol/L (23-31); Chloride 100 mmol/L (98-107); Estimated GFR-MDRD 83; Glucose 99 mg/dL (83-110); Magnesium 2.2 mg/dL (1.6-2.6); Phosphorus 3.7 mg/dL (2.3-4.7); Potassium 4.1 mmol/L (3.5-5.1); Sodium 136 mmol/L (136-145)
[2019-05-23] MEDS ORDERED: Furosemide 40 MG/4 ML VIAL SLOW IVP SCH (09:30)
[2019-05-23] MEDS: Famotidine 20 MG TAB PO SCH ×2 (09:41→20:13)
[2019-05-23] MEDS: Amlodipine 5 MG TAB PO SCH ×2 (09:41→20:12)
[2019-05-23] MEDS: Ascorbic Acid 500 mg Chewable Tablet PO SCH ×2 (09:41→20:13)
[2019-05-23] MEDS: Amiodarone 200 MG TAB PO SCH ×2 (09:42→20:13)
[2019-05-23] MEDS: Losartan 25 MG TAB PO SCH (09:42)
[2019-05-23] MEDS: Hydrochlorothiazide 25 MG TAB PO SCH (09:42)
[2019-05-23] MEDS: Senokot S 8.6-50 MG TAB PO SCH (09:42)
[2019-05-23] MEDS: Metoclopramide 10 MG/10 ML UDCUP PO SCH ×2 (09:42→15:15)
[2019-05-23] MEDS: Ferrous Sulfate 325 MG TAB PO SCH ×2 (09:42→17:28)
[2019-05-23] MEDS: Loratadine 10 MG TAB PO SCH (09:43)
[2019-05-23] MEDS: Bacitracin Zinc Ointment 30 gm TUBE TOP SCH ×2 (09:48→20:28)
[2019-05-23] MEDS: Atorvastatin Calcium 20 MG TAB PO SCH ×2 (10:24→20:13)
[2019-05-23] MEDS: Lifitegrast [Xiidra] 1 DROP EA EYE SCH ×2 (10:24→20:16)
[2019-05-23] MEDS: Sulfameth/Trimethoprim DS 800-160mg TAB PO SCH (15:15)
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
[2019-05-23] MEDS: Enoxaparin Sodium 40 MG/0.4 ML SYRINGE SC SCH (20:14)
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
[2019-05-24] MEDS: Acetaminophen 500 MG TAB PO SCH ×4 (03:01→20:10)
[2019-05-24] MEDS: traMADol HCl 50 MG TAB PO SCH ×4 (03:02→20:11)
[2019-05-24 06:14] LABS: #Eosinphils 0.2 thou/uL (0.0-0.7); #Lymphocytes 1.3 thou/uL (1.20-3.40); #Monocytes 1.6 thou/uL (0.11-0.59); #Neutrophils 12.8 thou/uL (1.40-6.50); %Basophils 0.2 % (0.0-1.0); %Eosinophils 1.1 % (0.0-10.0); %Lymphocytes 8.2 % (21.0-51.0); %Monocytes 9.9 % (0.0-10.0); %Neutrophils 80.6 % (42.0-75.0); Hemoglobin 8.9 g/dL (12.0-16.0); Mean Corpuscular HGB CONC 32.6 g/dL (32.0-36.0); Mean Corpuscular Hemoglobin 31.9 pg (27.0-31.0); Mean Platelet Volume 6.9 fL (7.4-10.4); Platelet Count 365 thou/uL (130-400); RBC Distribution Width 16.5 % (11.5-14.5); Red Blood Cell (RBC) Count 2.78 mill/uL (4.20-5.40); White Blood Cell (WBC) Count 15.9 thou/uL (4.8-10.8)
[2019-05-24 06:38] LABS: Anion Gap 13 mmol/L (10-20); BUN (Urea Nitrogen) 30 mg/dL (9.8-20.1); Calc. Creatinine Clearance 58 mL/min (70-130); Calcium 8.7 mg/dL (7.8-10.44); Carbon Dioxide 29 mmol/L (23-31); Chloride 98 mmol/L (98-107); Estimated GFR-MDRD 79; Glucose 108 mg/dL (83-110); Magnesium 2.1 mg/dL (1.6-2.6); Phosphorus 4.1 mg/dL (2.3-4.7); Potassium 4.1 mmol/L (3.5-5.1); Sodium 136 mmol/L (136-145)
[2019-05-24] MEDS: Losartan 25 MG TAB PO SCH (08:18)
[2019-05-24] MEDS: Ferrous Sulfate 325 MG TAB PO SCH ×2 (08:18→16:29)
[2019-05-24] MEDS: Hydrochlorothiazide 25 MG TAB PO SCH (08:19)
[2019-05-24] MEDS: Amlodipine 5 MG TAB PO SCH ×2 (08:19→20:10)
[2019-05-24] MEDS: Loratadine 10 MG TAB PO SCH (08:19)
[2019-05-24] MEDS: Amiodarone 200 MG TAB PO SCH ×2 (08:19→20:10)
[2019-05-24] MEDS: Ascorbic Acid 500 mg Chewable Tablet PO SCH ×2 (08:19→20:10)
[2019-05-24] MEDS: Famotidine 20 MG TAB PO SCH (08:19)
[2019-05-24] MEDS ORDERED: Furosemide 40 MG/4 ML VIAL SLOW IVP SCH (09:30)
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
[2019-05-24] MEDS: Lifitegrast [Xiidra] 1 DROP EA EYE SCH ×2 (11:27→20:14)
[2019-05-24] MEDS: Cefepime 1 GM in Sodium Chloride 0.9% 100 ML IVPB SCH ×2 (14:14→21:03)
[2019-05-24] MEDS: Bacitracin Zinc Ointment 30 gm TUBE TOP SCH ×2 (14:16→21:02)
[2019-05-24] MEDS: Melatonin 3 MG TAB PO SCH (20:09)
[2019-05-24] MEDS: Atorvastatin Calcium 20 MG TAB PO SCH (20:10)
[2019-05-24] MEDS: Enoxaparin Sodium 40 MG/0.4 ML SYRINGE SC SCH (20:13)
[2019-05-25] MEDS: traMADol HCl 50 MG TAB PO SCH ×4 (02:52→21:00)
[2019-05-25] MEDS: Acetaminophen 500 MG TAB PO SCH ×4 (02:52→21:01)
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
[2019-05-25] MEDS: Cefepime 1 GM in Sodium Chloride 0.9% 100 ML IVPB SCH ×3 (05:28→21:11)
[2019-05-25 07:43] LABS: #Eosinphils 0.1 thou/uL (0.0-0.7); #Lymphocytes 1.4 thou/uL (1.20-3.40); #Monocytes 1.6 thou/uL (0.11-0.59); #Neutrophils 9.5 thou/uL (1.40-6.50); %Basophils 0.1 % (0.0-1.0); %Eosinophils 1.2 % (0.0-10.0); %Lymphocytes 11.2 % (21.0-51.0); %Monocytes 12.6 % (0.0-10.0); %Neutrophils 74.9 % (42.0-75.0); Hemoglobin 9.2 g/dL (12.0-16.0); Mean Corpuscular HGB CONC 32.1 g/dL (32.0-36.0); Mean Corpuscular Hemoglobin 31.9 pg (27.0-31.0); Mean Corpuscular Volume 99.3 fL (78.0-98.0); Mean Platelet Volume 6.9 fL (7.4-10.4); Platelet Count 407 thou/uL (130-400); RBC Distribution Width 16.7 % (11.5-14.5); Red Blood Cell (RBC) Count 2.89 mill/uL (4.20-5.40); White Blood Cell (WBC) Count 12.7 thou/uL (4.8-10.8)
[2019-05-25 08:06] LABS: Anion Gap 11 mmol/L (10-20); BUN (Urea Nitrogen) 36 mg/dL (9.8-20.1); Calc. Creatinine Clearance 55 mL/min (70-130); Calcium 9.1 mg/dL (7.8-10.44); Carbon Dioxide 34 mmol/L (23-31); Chloride 97 mmol/L (98-107); Estimated GFR-MDRD 74; Glucose 151 mg/dL (83-110); Phosphorus 3.8 mg/dL (2.3-4.7); Potassium 3.9 mmol/L (3.5-5.1); Sodium 138 mmol/L (136-145)
[2019-05-25] MEDS: Amiodarone 200 MG TAB PO SCH ×2 (08:43→21:02)
[2019-05-25] MEDS: Losartan 25 MG TAB PO SCH (08:43)
[2019-05-25] MEDS: Loratadine 10 MG TAB PO SCH (08:44)
[2019-05-25] MEDS: Ferrous Sulfate 325 MG TAB PO SCH ×2 (08:44→18:18)
[2019-05-25] MEDS: Hydrochlorothiazide 25 MG TAB PO SCH (08:44)
[2019-05-25] MEDS: Pantoprazole 40 MG GRANULES PACKET PER TUBE SCH (08:44)
[2019-05-25] MEDS: Amlodipine 5 MG TAB PO SCH ×2 (08:44→21:01)
[2019-05-25] MEDS: Ascorbic Acid 500 mg Chewable Tablet PO SCH ×2 (08:44→21:01)
[2019-05-25] MEDS: Bacitracin Zinc Ointment 30 gm TUBE TOP SCH ×2 (09:22→21:02)
[2019-05-25] MEDS ORDERED: Furosemide 40 MG/4 ML VIAL SLOW IVP SCH (09:45)
[2019-05-25] MEDS: Lifitegrast [Xiidra] 1 DROP EA EYE SCH ×2 (12:19→21:03)
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
[2019-05-25] MEDS: Melatonin 3 MG TAB PO SCH (21:01)
[2019-05-25] MEDS: Atorvastatin Calcium 20 MG TAB PO SCH (21:01)
[2019-05-25] MEDS: Enoxaparin Sodium 40 MG/0.4 ML SYRINGE SC SCH (21:02)
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
[2019-05-26] MEDS: traMADol HCl 50 MG TAB PO SCH ×4 (02:22→21:52)
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
[2019-05-26] MEDS: Acetaminophen 500 MG TAB PO SCH ×4 (02:37→21:57)
[2019-05-26] MEDS: Cefepime 1 GM in Sodium Chloride 0.9% 100 ML IVPB SCH ×3 (05:24→21:53)
[2019-05-26 08:53] LABS: Anion Gap 14 mmol/L (10-20); BUN (Urea Nitrogen) 39 mg/dL (9.8-20.1); Calc. Creatinine Clearance 63 mL/min (70-130); Calcium 8.7 mg/dL (7.8-10.44); Carbon Dioxide 29 mmol/L (23-31); Chloride 99 mmol/L (98-107); Estimated GFR-MDRD 86; Glucose 152 mg/dL (83-110); Magnesium 2.1 mg/dL (1.6-2.6); Phosphorus 3.5 mg/dL (2.3-4.7); Potassium 4.2 mmol/L (3.5-5.1); Sodium 138 mmol/L (136-145)
[2019-05-26] MEDS: Ascorbic Acid 500 mg Chewable Tablet PO SCH ×2 (09:30→21:51)
[2019-05-26] MEDS: Amiodarone 200 MG TAB PO SCH ×2 (09:30→21:53)
[2019-05-26] MEDS: Amlodipine 5 MG TAB PO SCH ×2 (09:31→21:54)
[2019-05-26] MEDS: Losartan 25 MG TAB PO SCH (09:31)
[2019-05-26] MEDS: Hydrochlorothiazide 25 MG TAB PO SCH (09:32)
[2019-05-26] MEDS: Potassium Chloride 10 MEQ TAB PO SCH (09:32)
[2019-05-26] MEDS: Pantoprazole 40 MG GRANULES PACKET PER TUBE SCH (09:32)
[2019-05-26] MEDS: Ferrous Sulfate 325 MG TAB PO SCH ×2 (09:32→16:00)
[2019-05-26] MEDS: Loratadine 10 MG TAB PO SCH (09:32)
[2019-05-26] MEDS: Furosemide 40 MG/4 ML VIAL SLOW IVP SCH (09:33)
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
[2019-05-26] MEDS: Lifitegrast [Xiidra] 1 DROP EA EYE SCH ×2 (09:55→21:59)
[2019-05-26] MEDS: Bacitracin Zinc Ointment 30 gm TUBE TOP SCH ×2 (09:55→21:50)
[2019-05-26] MEDS: Ondansetron PF 4 MG/2 ML Vial IVP PRN (10:34)
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
[2019-05-26] MEDS: Atorvastatin Calcium 20 MG TAB PO SCH (21:51)
[2019-05-26] MEDS: Enoxaparin Sodium 40 MG/0.4 ML SYRINGE SC SCH (21:51)
[2019-05-26] MEDS: Melatonin 3 MG TAB PO SCH (21:53)
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
[2019-05-27] MEDS: Acetaminophen 500 MG TAB PO SCH ×4 (02:39→21:02)
[2019-05-27] MEDS: traMADol HCl 50 MG TAB PO SCH ×4 (02:39→21:01)
[2019-05-27] MEDS: Cefepime 1 GM in Sodium Chloride 0.9% 100 ML IVPB SCH ×3 (05:10→21:04)
[2019-05-27 06:37] VITALS: BMI 26.4
--- NOTE | 2019-05-27 08:08 | RAD ---
XR Chest 1 View Portable History: Follow-up. Comparison: Radiograph May 22, 2019 Findings: PICC tip sits at the cavoatrial junction. Large bilateral pleural effusions. Heart size is enlarged. Weighted feeding tube tip projects over the left upper quadrant of the abdomen, coiled upon itself. Mild pulmonary edema. Bibasilar atelectasis. Similar left scapular body fracture. Impression: Similar examination of the chest.
[2019-05-27] MEDS ORDERED: Ketamine 50 MG/ML (10ML VIAL) ONE (09:04)
[2019-05-27] MEDS: Ferrous Sulfate 325 MG TAB PO SCH ×2 (10:42→16:56)
[2019-05-27] MEDS: Potassium Chloride 10 MEQ TAB PO SCH (10:42)
[2019-05-27] MEDS: Amlodipine 5 MG TAB PO SCH ×2 (10:43→21:03)
[2019-05-27] MEDS: Hydrochlorothiazide 25 MG TAB PO SCH (10:43)
[2019-05-27] MEDS: Furosemide 40 MG/4 ML VIAL SLOW IVP SCH (10:43)
[2019-05-27] MEDS: Amiodarone 200 MG TAB PO SCH ×2 (10:43→21:03)
[2019-05-27] MEDS: Ascorbic Acid 500 mg Chewable Tablet PO SCH ×2 (10:43→21:02)
[2019-05-27] MEDS: Loratadine 10 MG TAB PO SCH (10:44)
[2019-05-27] MEDS: Losartan 25 MG TAB PO SCH (10:44)
[2019-05-27] MEDS: Pantoprazole 40 MG GRANULES PACKET PER TUBE SCH (10:44)
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
[2019-05-27] MEDS: Lifitegrast [Xiidra] 1 DROP EA EYE SCH ×2 (10:46→21:04)
[2019-05-27] MEDS: Bacitracin Zinc Ointment 30 gm TUBE TOP SCH ×2 (10:49→21:05)
--- NOTE | 2019-05-27 15:24 | OP ---
DATE OF PROCEDURE: 05/27/2019 [employer]ATIVE OFFICER SURGEON: None. PROCEDURE PERFORMED: Esophagogastroduodenoscopy with PEG tube placement. INDICATIONS: 1. Failure to thrive. 2. Mild oropharyngeal dysphagia. MEDICATIONS: 1. See Anesthesia record. 2. The patient is on scheduled cefepime on the floor. This will serve as periprocedural antibiotic prophylaxis. FINDINGS: After discussion of the risks, benefits, and alternatives of the procedure, informed consent was obtained and witnessed. Pre-endoscopic cardiopulmonary examination was satisfactory. Time-out was performed before sedation was achieved. Sedation was achieved with Anesthesia assistance in the endoscopy unit. The patient was kept in the supine position on her hospital bed in the endoscopy suite. A Pentax adult upper endoscope was placed into the oropharynx and passed through the cricopharyngeus under direct visualization. The esophageal mucosa appeared normal throughout. The endoscope was advanced into the stomach. Forward and retroflexed views of the entire gastric mucosa were obtained. The gastric mucosa appeared normal. The endoscope was advanced through the pylorus and into the first and second portions of the duodenum, which were also unremarkable. The patient has a Dobhoff tube in the right naris. At this point, the Dobhoff tube was completely removed. Using one-to-one pressure and transillumination methods, we were able to locate a suitable site for PEG tube placement in the left upper quadrant. The site was prepped and draped in a sterile fashion and then, anesthetized with subcutaneous lidocaine. A 1 cm vertical incision was made. The introducer needle and catheter were then introduced transcutaneously into the gastric lumen. The needle was removed. The wire was advanced through the catheter and grasped with a snare. The wire was then removed from the patient's mouth. A 20-Malagasy traction PEG tube was affixed into the wire and then pulled through into position in the usual fashion without difficulty. The esophagus was then reintubated, and the endoscope advanced into the stomach for examination of the internal bumper. This appeared to be in good position with no complication. The external bumper clamp and external ports were then affixed to the PEG tube. The external bumper was placed at a measurement of 2.5 cm. The procedure was then completed. The patient tolerated the procedure well. There were no immediate postprocedure complications. IMPRESSION: 1. Successful placement of 20-Malagasy traction PEG tube to the left upper quadrant, with external bumper at 2.5 cm. 2. Otherwise normal esophagogastroduodenoscopy. RECOMMENDATIONS: 1. Flush tube regularly. 2. May use the tube for medications now. 3. May use the tube for feeds in 4 hours. 4. We will plan to come by tomorrow to check on the PEG site and likely loosen the external bumper. Job ID: [id number]
[2019-05-27] MEDS ORDERED: Enoxaparin Sodium 40 MG/0.4 ML SYRINGE SC SCH (21:00)
[2019-05-27] MEDS: Atorvastatin Calcium 20 MG TAB PO SCH (21:02)
[2019-05-27] MEDS: Melatonin 3 MG TAB PO SCH (21:04)
[2019-05-27 21:06] VITALS: BP 136/54
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
[2019-05-28] MEDS: traMADol HCl 50 MG TAB PO SCH ×3 (02:27→15:51)
[2019-05-28] MEDS: Acetaminophen 500 MG TAB PO SCH ×3 (02:29→15:51)
[2019-05-28] MEDS: Cefepime 1 GM in Sodium Chloride 0.9% 100 ML IVPB SCH ×2 (05:06→15:51)
[2019-05-28] MEDS ORDERED: Furosemide 40 MG TAB PO SCH (07:30)
[2019-05-28] MEDS ORDERED: Apixaban 5 MG TAB PO SCH (09:00)
[2019-05-28] MEDS ORDERED: Aspirin Chewable 81 MG TAB PO SCH (09:00)
[2019-05-28 09:23] LABS: Anion Gap 12 mmol/L (10-20); BUN (Urea Nitrogen) 37 mg/dL (9.8-20.1); Calc. Creatinine Clearance 65 mL/min (70-130); Calcium 8.9 mg/dL (7.8-10.44); Carbon Dioxide 32 mmol/L (23-31); Chloride 101 mmol/L (98-107); Estimated GFR-MDRD 89; Glucose 154 mg/dL (83-110); Magnesium 2.4 mg/dL (1.6-2.6); Phosphorus 2.9 mg/dL (2.3-4.7); Potassium 4.2 mmol/L (3.5-5.1); Sodium 141 mmol/L (136-145)
[2019-05-28] MEDS ORDERED: PHOS-NAK 1 PKT PACK PO SCH (10:00)
[2019-05-28] MEDS: Ferrous Sulfate 325 MG TAB PO SCH ×2 (10:06→15:52)
[2019-05-28] MEDS: Potassium Chloride 10 MEQ TAB PO SCH (10:06)
[2019-05-28] MEDS: Amiodarone 200 MG TAB PO SCH (10:06)
[2019-05-28] MEDS: Amlodipine 5 MG TAB PO SCH (10:07)
[2019-05-28] MEDS: Ascorbic Acid 500 mg Chewable Tablet PO SCH (10:07)
--- NOTE | 2019-05-28 10:07 | PRG ---
DATE OF SERVICE: 05/28/2019 SUBJECTIVE: Ms. Mckinney is doing pretty well today. She is tolerating tube feeds through her PEG tube. She says she is a bit sore around the area. There is no nausea or vomiting. OBJECTIVE: VITAL SIGNS: Temperature 97.4, pulse 73, blood pressure 157/71, and 98% oxygen saturation on 2 L nasal cannula. GENERAL: No acute distress. HEART: Regular rate and rhythm. LUNGS: Clear to auscultation bilaterally. ABDOMEN: Nondistended. Bowel sounds are present. She is tender to palpation just around the PEG tube site and surrounding skin looks good. There is no erythema, no induration, no significant oozing or bleeding around the tube site. I did adjust the external bumper slightly to a distance of 3 cm, which should be a good distance for her. EXTREMITIES: No peripheral edema. LABORATORY STUDIES: BUN 37, creatinine 0.63, sodium 141, potassium 4.2, calcium 8.9, phosphorus 2.9, magnesium 2.4. ASSESSMENT/PLAN: Failure to thrive, now status post successful percutaneous endoscopic gastrostomy tube placement yesterday. The PEG site looks good. I adjusted the external bumper slightly to 3 cm, which should be a good distance for her. She is tolerating her tube feeds. GI will sign off at this time, but please call back anytime with questions or concerns. Job ID: [id number]
[2019-05-28] MEDS: Lifitegrast [Xiidra] 1 DROP EA EYE SCH (10:08)
[2019-05-28] MEDS: Pantoprazole 40 MG GRANULES PACKET PER TUBE SCH (10:08)
[2019-05-28] MEDS: Furosemide 40 MG/4 ML VIAL SLOW IVP SCH (10:08)
[2019-05-28] MEDS: Loratadine 10 MG TAB PO SCH (10:08)
[2019-05-28] MEDS: Losartan 25 MG TAB PO SCH (10:08)
[2019-05-28] MEDS: Hydrochlorothiazide 25 MG TAB PO SCH (10:08)
[2019-05-28] MEDS: Bacitracin Zinc Ointment 30 gm TUBE TOP SCH (10:16)
[2019-05-28 10:43] VITALS: TEMP 98.2
[2019-05-29] MEDS ORDERED: Apixaban 5 MG TAB PO SCH (09:00)
--- NOTE | 2019-05-31 10:07 | EKG ---
Test Reason : Blood Pressure : / mmHG Vent. Rate : 083 BPM Atrial Rate : 388 BPM P-R Int : 000 ms QRS Dur : 082 ms QT Int : 322 ms P-R-T Axes : 000 047 223 degrees QTc Int : 378 ms Atrial fibrillation Low voltage QRS Nonspecific ST and T wave abnormality Abnormal ECG Confirmed by DR. Mark POTTS ([id number]) on 05/31/2019 10:07:19 AM Referred By: ISSA Confirmed By:DR. Mark POTTS
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
[2019-06-02] MEDS ORDERED: Amiodarone 200 MG TAB PO SCH (09:00)
[2019-06-17] MEDS ORDERED: Amiodarone 200 MG TAB PO SCH (09:00)
== END 2019-05-28 18:00 | disposition short-term general hospital (02) | DRG 957 ==
LOC: ERS 12:25 → EDBD 12:25 → CCU 15:12 → IMCU/EMU 05-21 18:18
PROVIDERS: ADMIT Surgery; ATTEND Surgery
PROC: 0PSH04Z Reposition Right Radius with Internal Fixation Device, Open Approach (ICD-10-PCS; 2019-05-13)
PROC: 0HQEXZZ Repair Left Lower Arm Skin, External Approach (ICD-10-PCS; 2019-05-13)
PROC: 02HV33Z Insertion of Infusion Device into Superior Vena Cava, Percutaneous Approach (ICD-10-PCS; 2019-05-13)
PROC: B548ZZA Ultrasonography of Superior Vena Cava, Guidance (ICD-10-PCS; 2019-05-13)
PROC: 30233L1 Transfusion of Nonautologous Fresh Plasma into Peripheral Vein, Percutaneous Approach (ICD-10-PCS; 2019-05-13)
PROC: 30233N1 Transfusion of Nonautologous Red Blood Cells into Peripheral Vein, Percutaneous Approach (ICD-10-PCS; 2019-05-13)
PROC: 30233K1 Transfusion of Nonautologous Frozen Plasma into Peripheral Vein, Percutaneous Approach (ICD-10-PCS; 2019-05-13)
PROC: 0PSG04Z Reposition Left Humeral Shaft with Internal Fixation Device, Open Approach (ICD-10-PCS; principal; 2019-05-15)
PROC: 0QDG0ZZ Extraction of Right Tibia, Open Approach (ICD-10-PCS; 2019-05-15)
PROC: 5A2204Z Restoration of Cardiac Rhythm, Single (ICD-10-PCS; 2019-05-15)
PROC: 5A2204Z Restoration of Cardiac Rhythm, Single (ICD-10-PCS; 2019-05-17)
PROC: 0QSG05Z Reposition Right Tibia with External Fixation Device, Open Approach (ICD-10-PCS; 2019-05-19)
PROC: 0DH63UZ Insertion of Feeding Device into Stomach, Percutaneous Approach (ICD-10-PCS; 2019-05-27)
DX: S42.402B Unspecified fracture of lower end of left humerus, initial encounter for open fracture (principal); S82.201B Unspecified fracture of shaft of right tibia, initial encounter for open fracture type I or II; T79.4XXA Traumatic shock, initial encounter; S52.501B Unspecified fracture of the lower end of right radius, initial encounter for open fracture type I or II; I50.31 Acute diastolic (congestive) heart failure; S32.512A Fracture of superior rim of left pubis, initial encounter for closed fracture; S32.309A Unspecified fracture of unspecified ilium, initial encounter for closed fracture; S32.10XA Unspecified fracture of sacrum, initial encounter for closed fracture; S06.0X9A Concussion with loss of consciousness of unspecified duration, initial encounter; E87.2 Acidosis; D62 Acute posthemorrhagic anemia; I97.89 Other postprocedural complications and disorders of the circulatory system, not elsewhere classified; E87.1 Hypo-osmolality and hyponatremia; J98.11 Atelectasis; K56.7 Ileus, unspecified; N39.0 Urinary tract infection, site not specified; S42.402A Unspecified fracture of lower end of left humerus, initial encounter for closed fracture; Z79.899 Other long term (current) drug therapy; V63.5XXA Driver of heavy transport vehicle injured in collision with car, pick-up truck or van in traffic accident, initial encounter; Y92.411 Interstate highway as the place of occurrence of the external cause; Z68.26 Body mass index [BMI] 26.0-26.9, adult; S42.102A Fracture of unspecified part of scapula, left shoulder, initial encounter for closed fracture; E78.5 Hyperlipidemia, unspecified; S82.302A Unspecified fracture of lower end of left tibia, initial encounter for closed fracture; S82.402A Unspecified fracture of shaft of left fibula, initial encounter for closed fracture; R31.9 Hematuria, unspecified; R40.2362 Coma scale, best motor response, obeys commands, at arrival to emergency department; I11.0 Hypertensive heart disease with heart failure; R40.2142 Coma scale, eyes open, spontaneous, at arrival to emergency department; R40.2242 Coma scale, best verbal response, confused conversation, at arrival to emergency department; E83.42 Hypomagnesemia; E87.6 Hypokalemia; J98.4 Other disorders of lung; B96.5 Pseudomonas (aeruginosa) (mallei) (pseudomallei) as the cause of diseases classified elsewhere; R19.7 Diarrhea, unspecified; R13.12 Dysphagia, oropharyngeal phase; K59.00 Constipation, unspecified; R62.7 Adult failure to thrive
CPT/HCPCS: 29515; 36415; 36416; 36430; 36556; 36569; 51702; 70450; 71045; 71260; 72125; 72170; 72190; 72194; 74018; 74177; 76000; 80048; 80053; 81001; 81003; 81015; 82550; 82805; 83605; 83690; 83735; 83880; 84100; 84134; 84484; 85025; 85610; 85730; 86850; 86900; 86901; 87077; 87086; 87186; 90471; 90715; 93005; 93010; 93306; 94640; 96361; 96365; 96375; 99292; C1713; C1751; G0390; J0131; J0282; J0360; J0690; J0692; J0744; J1160; J1644; J1650; J1815; J1885; J1940; J2001; J2270; J2370; J2405; J2550; J2704; J2710; J2765; J2997; J3010; J3475; J3480; J3490; J7050; J7070; J7620; P9016; P9035; P9048; Q9966; S0028